=== PATIENT | female | born 1955 | race Caucasian/White ===

== ENCOUNTER 2018-10-07 20:01 | Inpatient (IN) ==
[2018-10-07] MEDS ORDERED: ASPIRIN ONE (20:09)
[2018-10-07] MEDS ORDERED: ASPIRIN PO ONE (20:43)
--- NOTE | 2018-10-07 20:58 | PROVIDER DOCUMENTATION ---
HPI-General Adult - General Chief Complaint: Chest Pain Stated Complaint: CHEST PAIN Time Seen by Provider: 10/07/18 20:45 Source: patient Allergies/Adverse Reactions: Patient Allergies Allergy/AdvReac Type Severity Reaction Status Date / Time Penicillins Allergy SWELLING Verified 10/07/18 20:14 Sulfa (Sulfonamide Allergy SWELLING Verified 10/07/18 20:14 Antibiotics) Home Medications: Home Medication List Medication Instructions Recorded Confirmed Last Taken Type ATORVAstatin [Lipitor] 1 tab PO DAILY 07/29/18 07/29/18 Unknown History Alprazolam 1 tab PO BID PRN 07/29/18 07/29/18 Unknown History Bumetanide 1 tab PO BID 07/29/18 07/29/18 Unknown History Cyclobenzaprine [Flexeril] 10 mg PO 4XDAY PRN 07/29/18 07/29/18 Unknown History Duloxetine HCl 1 cap PO BID 07/29/18 07/29/18 Unknown History Fluconazole 100 mg PO BID 07/29/18 07/29/18 Unknown History Gabapentin 1 cap PO BID 07/29/18 07/29/18 Unknown History Losartan [Cozaar] 1 tab PO DAILY 07/29/18 07/29/18 Unknown History Meclizine [Antivert] 1 tab PO 4XDAY PRN 07/29/18 07/29/18 Unknown History Ondansetron HCl [Zofran] 1 tab PO BID PRN 07/29/18 07/29/18 Unknown History Pantoprazole [Protonix] 1 tab PO DAILY 07/29/18 07/29/18 Unknown History Promethazine [Phenergan] 1 tab PO Q6H PRN 07/29/18 07/29/18 Unknown History Tramadol HCl 1 tab PO BID PRN 07/29/18 07/29/18 Unknown History Trazodone [Desyrel] 1 tab PO HS 07/29/18 07/29/18 Unknown History - History of Present Illness -Gen Adult Nature of Presenting Problems: 62 y/o F presents to the ED complaining of 1 day of chest pain and generalized fatigue. Sates the pain began last night at about 6pm and is pressure like in her central chest. States with this she has been short of breath and notes that the pain and dyspnea worsens with exertion. Has also been feeling generally fatigued and has been craving ice which she states is how she felt when she was last anemic. Is still being worked up for her prior anemia and is due to have a colonoscopy at the end of the month. No melana or BRB per rectum. no fever, no uti type symptoms. has extensive cardiac history with multiple prior stents. 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 denies: fever Eyes: reports: no symptoms reported Ears, Nose, Mouth & Throat: reports: no symptoms reported Cardiovascular: reports: chest pain. denies: orthopnea, PND Respiratory: reports: dyspnea on exertion, shortness of breath. denies: cough Gastrointestinal: reports: no symptoms reported Genitourinary: reports: no symptoms reported Musculoskeletal: reports: no symptoms reported Integumentary: reports: no symptoms reported Neurological: reports: no symptoms reported Psychiatric: reports: no symptoms reported Endocrine: reports: no symptoms reported Hematologic/Lymphatic: reports: no symptoms reported Allergic/Immunologic: reports: no symptoms reported All Other Systems: Reviewed and Negative Past History - Adult - PAST MEDICAL HISTORY-ADULT Review of Records: reports: Old Records Reviewed, Nursing Assessment Review, Medications Reviewed, Social history reviewed & non-contributory. Cardiovascular: reports: CAD Respiratory: reports: asthma Musculoskeletal: reports: fibromyalgia - PRIOR SURGERIES/PROCEDURES Surgical/Procedure History: reports: cholecystectomy, cardiac stent (aortic), hysterectomy - IMMUNIZATION STATUS Childhood Immunizations: See Nurse Assessment Flu Vaccine: See Nurse Assessment - FAMILY HISTORY Family History: reviewed, not pertinent, cancer Physical Exam-General - PHYSICAL EXAM-ADULT Initial Vital Signs Reviewed: Yes - CONSTITUTIONAL General Appearance: appears well, alert, no apparent distress - EYES Eyes: PERRL/EOMI - HEAD, EARS, NOSE, MOUTH & THROAT HENMT: normocephalic/atraumatic, moist mucous membranes, normal ENT inspection - NECK Neck: non-tender, full range of motion, supple - RESPIRATORY Respiratory: chest non-tender, lungs clear, normal breath sounds - CARDIOVASCULAR Cardiovascular: normal peripheral pulses, regular rate, rhythm, no JVD, other (1 + bl pedal edema) - GASTROINTESTINAL (ABDOMEN) Abdominal Exam: non tender, soft - MUSCULOSKELETAL Back Exam: normal inspection, no CVA tenderness Extremity: normal range of motion, non-tender - SKIN Integumentary: normal color, normal turgor, warm/dry - NEUROLOGIC Neurologic: grossly normal, no motor/sensory deficits - PSYCHIATRIC Psych/Mental Status: normal mood/affect, normal thought content, normal thought process, oriented x 3 Progress - PLAN OF CARE/RESULTS Progress/Plan/Lab Results: Vital Signs - 8 hr 10/07/18 20:11 Temperature 98.6 F Pulse Rate 95 H Respiratory Rate 16 Blood Pressure 163/104 O2 Sat by Pulse Oximetry 98 Orders Category Date Time Status CHEST-2 VIEWS [RAD] Stat Exams 10/07/18 20:16 Taken BMP [BASIC METABOLIC PANEL] [CHEM] Stat Lab 10/07/18 20:51 Ordered BNP [PRO B-NATRIURETIC PEPTIDE] Stat Lab 10/07/18 20:52 Uncollected CBC WITH ELECTRONIC DIFF [HEME] Stat Lab 10/07/18 20:51 Ordered CK PROFILE [SP CHEM] Stat Lab 10/07/18 20:27 Received TROPONIN T Stat Lab 10/07/18 20:27 Received Aspirin Med 10/07/18 20:09 Discontinued 325 mg .ROUTE .STK-MED ONE Aspirin Med 10/07/18 20:43 Discontinued 325 mg PO NOW ONE EKG [EKG] Stat Ther 10/07/18 20:15 Ordered chest pain with dyspnea and fatigue will further evaluate for causes including but not limited to ACS, arrythmia, CHF, pna, ptx, pe, anemia Result Diagrams: 10/07/18 20:20 10/07/18 20:20 - REASSESSMENT Reassessment #1 Status: improving (feeling well chest pain resovled. ED work up unremarkable but presentation concering for ACS will admit for further evaluation and treatment) - EKG 1 Time of EKG reading by physician:: 20:10 EKG Read and Signed by:: Shira Grimes EKG Interpretation (*Must complete 3 of following elements*): Normal (Sinus Rhythm, rate 97, no acute st changes, normal axis and intervals) - XRAY 1 XRAY Study: Chest Impression: Normal (per radiologist read: IMPRESSION: Stable cardiomegaly and mild atelectasis versus scarring at the lower lung zones. No definite acute pathology, otherwise.") - CONSULTS/PCP/HOSPITALIST Notification #1 *Consult/PCP/Hospitalist*: Dr. Wilson, Hospitalist Time Discussed: 22:50 Consult Disposition: Admit Departure - Departure Date of Disposition Decision: 10/07/18 Time of Disposition Decision: 22:54 DIAGNOSIS: Chest pain Qualifiers: Chest pain type: unspecified Qualified Code(s): R07.9 - Chest pain, unspecified Disposition: ADMITTED INPATIENT 09 Certified Medical Emergency: Emergent Condition: Good Referrals and Follow-Ups: Dale Benjamin [Primary Care Provider] - - Critical Care Note This patient required my direct & personal management of CC.: No Attestation - Physician/ KATELIN Attestation Patient care was provided by Advanced Practice Provider:: No The physician spent face to face time with patient:: Yes Advanced Practice Provider documentation review:: Supervising physician onsite and consulted in the evaluation and care of this patient. The physician did have a face to face encounter with the patient.
--- NOTE | 2018-10-07 21:28 | Diag Imaging Result Doc PS360 ---
EXAM: CHEST-2 VIEWS INDICATION: chest pain TECHNIQUE: 2 views COMPARISON: 07/29/2018 FINDINGS: There are stable linear densities at the lower lung zone suggesting chronic atelectasis versus scarring. The lungs are grossly clear, otherwise. There is no discrete pleural fluid collection or pneumothorax. There is stable cardiomegaly. Central vasculature is unremarkable. IMPRESSION: Stable cardiomegaly and mild atelectasis versus scarring at the lower lung zones. No definite acute pathology, otherwise. Electronically signed by Shailesh Meza 10/07/2018 9:25 PM
[2018-10-07 21:55] LABS: AGAP 14; BUN 11 mg/dL (8-22); CALCIUM 9.4 mg/dL (8.8-10.2); CHLORIDE 101 mmol/L (98-107); COSMO 283; CREATININE 0.8 mg/dL (0.5-0.9); ESTIMATED GFR > 60; GLUCOSE 114 mg/dL (70-104); POTASSIUM 3.8 mmol/L (3.5-5.1); SODIUM 142 mmol/L (136-145); TCO2 27 mmol/L (25-35)
[2018-10-07 22:06] LABS: BASO# 0.06 X1000 (0.0-0.2); BASO% 1.3 % (0.0-0.8); EOS# 0.23 X1000 (0.0-0.7); EOS% 5.1 % (0.0-10.0); HEMATOCRIT 30.6 % (37.0-47.0); HEMOGLOBIN 9.4 g/dL (12.0-16.0); IMM GRAN# 0.01 X1000 (0.0-0.04); IMM GRAN% 0.2 % (0.0-0.5); LYMPH# 1.46 X1000 (1.2-3.4); LYMPH% 32.2 % (20.5-51.1); MCH 23.6 PG (27-31); MCHC 30.7 g/dL (33-37); MCV 76.9 FL (81-99); MONO# 0.55 X1000 (0.11-0.59); MONO% 12.1 % (1.7-9.3); MPV 9.6 FL (7.4-10.4); NEUT# 2.23 X1000 (1.4-6.5); NEUT% 49.1 % (42.2-75.2); PLT 385 X1000 (130-400); RBC 3.98 XMIL (4.2-5.4); RDW 22.1 % (11.5-14.5); WBC 4.54 X1000 (4.8-10.8)
[2018-10-08] MEDS ORDERED: FLEXERIL PO PRN (11:21)
[2018-10-08] MEDS ORDERED: XANAX PO PRN (11:21)
[2018-10-08] MEDS ORDERED: ULTRAM PO PRN (11:21)
[2018-10-08] MEDS ORDERED: ANTIVERT PO PRN (11:21)
[2018-10-08] MEDS ORDERED: ZOFRAN ODT PO PRN (11:21)
--- NOTE | 2018-10-08 11:47 | HISTORY AND PHYSICAL ---
PRIMARY CARE PHYSICIAN: Dale Benjamin MD LEASING PROPERTY MANAGER: Raymon Kowalski MD CHIEF COMPLAINT: Chest pain, generalized fatigue, shortness of breath, and craving ice. HISTORY OF PRESENTING ILLNESS: This is a 62-year-old female, who presents to [facility] ER with complaints of substernal chest pain that she described as a heavy pressure that radiated through to her bilateral shoulder blades. She has had generalized fatigue, shortness of breath, and it is also noted that she is craving ice. She has a history of iron deficiency anemia. Workup showed an hemoglobin of 9.4 and hematocrit 30.6. Cardiac enzyme was negative. Her chest x-ray showed stable cardiomegaly, no definite acute pathology so she was admitted for further evaluation and treatment. PAST MEDICAL HISTORY: Coronary artery disease, asthma, fibromyalgia, and iron deficiency anemia. PAST SURGICAL HISTORY: Cholecystectomy, heart stent placement, and a hysterectomy. FAMILY HISTORY: Reviewed and noncontributory. SOCIAL HISTORY: She currently lives with family. Denies any tobacco, alcohol, or illicit drug use. ALLERGIES: Penicillin and sulfa. HOME MEDICATIONS: She takes Xanax 0.5 mg p.o. b.i.d. p.r.n., Lipitor 40 mg p.o. at bedtime, bumetanide 2 mg p.o. b.i.d., Flexeril 10 mg p.o. 4 times daily p.r.n., duloxetine 60 mg p.o. b.i.d., gabapentin 300 mg p.o. b.i.d., [place] 5 1 p.o. t.i.d. p.r.n., Cozaar 25 mg p.o. daily, meclizine 12.5 mg p.o. 4 times daily p.r.n., Zofran 8 mg p.o. b.i.d. p.r.n., Protonix 40 mg p.o. daily, potassium 10 mEq p.o. daily, Phenergan 25 mg p.o. q.6 h. p.r.n. (will be held), tramadol 50 mg p.o. b.i.d. p.r.n., and trazodone 50 mg p.o. at bedtime. DIAGNOSTIC STUDIES: White blood cell count of 4.54, hemoglobin 9.4, hematocrit 30.6, platelets 385,000. Sodium 142, potassium 3.8, chloride 101, CO2 of 27, BUN of 11, creatinine 0.8, glucose 114. Troponin was less than 0.010. ProBNP of 56. Chest x-ray showed stable cardiomegaly and mild atelectasis versus scarring at the lower lung zones. No definite acute pathology otherwise. REVIEW OF SYSTEMS: She denied any fever, chills, blurred vision, dizziness. She was positive for generalized fatigue, chest pain that radiated through to her bilateral shoulder blades, shortness of breath, and craving ice. Denied any abdominal pain, constipation, diarrhea, or burning or hurting with urination. PHYSICAL EXAMINATION: VITAL SIGNS: On arrival she had a temperature of 98.6 degrees, pulse 95, respirations 16, blood pressure was 163/104, saturating 98% on room air. Currently, her blood pressure is 132/78. GENERAL: This is a 62-year-old female, who is sitting on the side of the bed and answers questions appropriately. HEMNT: Normocephalic, atraumatic. Normal ENT inspection. Oropharynx and nares are clear. EYES: Pupils are equal, round, and reactive to light and accommodation. Extraocular movements are intact. NECK: Normal inspection. Normal range of motion. LUNGS: Clear to auscultation bilaterally with equal lung expansion and chest wall movement. HEART: Regular rate and rhythm. No murmurs, rubs, or gallops. ABDOMEN: Soft, nontender, nondistended. Bowel sounds are present x4 quadrants. MUSCULOSKELETAL: She has 5/5 strength x4 extremities. NEUROLOGICAL: The cranial nerves 2 through 12 are grossly intact. ASSESSMENT: 1. Chest pain. 2. Iron deficiency anemia, history of. 3. Fatigue. 4. History of coronary artery disease. PLAN: She was admitted to the medical unit. Placed on telemetry. O2 per protocol, but currently not requiring. Healthy heart diet. We are going to complete her sets of cardiac enzymes. We will do iron studies also. Continue her home medications. She was concerned because she has an appointment tomorrow with her orthopedic doctor to get refills on her medications for her fibromyalgia and was to have some injections into her knees for the fibromyalgia so I will discuss this with the attending. It may be possible, if her serial cardiac enzymes are negative, that we can set her up for a stress test outpatient so that she can keep this appointment, but in any case, we will review that once we get her labs back. Dictated by CAROLINE Lemus for Maycol Wilson MD cc: CAROLINE Lemus MD Charles D Coffey, MD
[2018-10-08 11:54] LABS: IRON SATURATION 5 %; TIBC 384 ug/dL; TOTAL IRON 21 ug/dL (49-151); UNBOUND IRON 363 ug/dL (112-346)
[2018-10-08] MEDS: CYMBALTA PO SCH ×2 (12:58→21:26)
[2018-10-08] MEDS: COZAAR PO SCH (12:59)
[2018-10-08] MEDS: NEURONTIN PO SCH ×2 (12:59→21:26)
[2018-10-08] MEDS: PROTONIX PO SCH (12:59)
[2018-10-08] MEDS: KLOR-CON PO SCH (12:59)
[2018-10-08] MEDS: BUMEX PO SCH ×2 (12:59→21:26)
[2018-10-08] MEDS ORDERED: VENOFER 200 MG in NS 150 ML IV ONE (13:00)
[2018-10-08 15:26] LABS: FERRITIN 13 ng/mL (13-150)
--- NOTE | 2018-10-08 18:41 | HISTORY AND PHYSICAL ---
CONSULT NOTE: The patient came in with chest pain. She is anemic. She has had some weakness, but her chest pain is heavy pressure, radiating to her bilateral shoulder blades. She does have a history of anemia, unclear etiology, but she has a history of anemia. Her workup was pretty negative so she went home. The plan was to go home. We discussed that she has had multiple stents. It has been over a year since her last invasive imaging. So, we will get that situated. DISPOSITION: Pending her clinical status. In any case, if workup is negative anticipate discharge tomorrow. We will see. cc: Maycol Wilson MD
[2018-10-08] MEDS ORDERED: LIPITOR PO SCH (21:00)
[2018-10-08] MEDS: DESYREL PO SCH (21:26)
[2018-10-09] MEDS: PROTONIX PO SCH (06:29)
[2018-10-09 07:31] LABS: ALBUMIN 3.9 g/dL (3.5-5.0); ALKALINE PHOSPHATASE 120 U/L (32-104); CHOLESTEROL 156 mg/dL (0-200); DIRECT BILIRUBIN < 0.20 mg/dL (0.00-0.20); GOT 17 U/L (10-30); GPT 13 U/L (10-36); HDL 61 mg/dL (45-65); LDL 81 mg/dL; TRIGLYCERIDES 68 mg/dL (35-135); VLDL 14 mg/dL
--- NOTE | 2018-10-09 09:11 | EKG Report ---
Test Performed on : 10/09/2018 05:53:06 AM Test Reason : cp Blood Pressure : / mmHG Vent. Rate : 092 BPM Atrial Rate : 092 BPM P-R Int : 170 ms QRS Dur : 072 ms QT Int : 364 ms P-R-T Axes : 038 -11 025 degrees QTc Int : 450 ms Normal sinus rhythm. Minimal voltage criteria for LVH, may be normal variant Inferior infarct (cited on or before 07-MAR-2017) Cannot rule out Anterior infarct , age undetermined Abnormal ECG When compared with ECG of 07-OCT-2018 20:09, (Unconfirmed) Questionable change in initial forces of Inferior leads Unconfirmed Result
--- NOTE | 2018-10-09 09:30 | EKG Report ---
Test Performed on : 10/07/2018 8:09:22 PM Test Reason : chest pain Blood Pressure : / mmHG Vent. Rate : 097 BPM Atrial Rate : 097 BPM P-R Int : 184 ms QRS Dur : 074 ms QT Int : 344 ms P-R-T Axes : 034 -14 012 degrees QTc Int : 436 ms Normal sinus rhythm. Minimal voltage criteria for LVH, may be normal variant Inferior infarct (cited on or before 07-MAR-2017) Abnormal ECG When compared with ECG of 29-JUL-2018 07:43, No significant change was found Unconfirmed Result
[2018-10-09] MEDS ORDERED: LEXISCAN ONE (10:00)
--- NOTE | 2018-10-09 11:12 | GRADED EXERCISE REPORT ---
DATE: 10/09/2018 GXT ADMINISTRATION AND EKG INTERPRETATION: INDICATION: Chest pain. SUMMARY: This a female, a 62-year-old with history of CAD. Her baseline EKG was nonspecific. She did have a Q in Lead III, but that is about it. She was administered Lexiscan 0.4 mg per protocol. Peak heart rate was 106. Peak blood pressure 125/74. She did develop chest pain, similar to her previous angina during this test, about 4 minutes into the test, not immediately. Test was felt to be clinically positive, but electrically negative. There were no significant ST changes. Myocardial perfusion reported separately. cc: Mayocl Wilson MD
[2018-10-09] MEDS: COZAAR PO SCH (13:43)
[2018-10-09] MEDS: NEURONTIN PO SCH ×2 (13:43→21:28)
[2018-10-09] MEDS: KLOR-CON PO SCH (13:43)
[2018-10-09] MEDS: CYMBALTA PO SCH ×2 (13:43→21:28)
[2018-10-09] MEDS: BUMEX PO SCH (13:43)
--- NOTE | 2018-10-09 15:09 | Diag Imaging Result Document ---
PROCEDURE NAME: MYOCARDIAL PERF SCAN, STR/REST - 10/09/2018 STUDY: Rest/stress Lexiscan myocardial perfusion study. REQUESTING PHYSICIAN: Dr. Wilson. INDICATION: Patient with previous stents and coronary heart disease. DESCRIPTION: The patient came into the nuclear lab and received rest injection of technetium 99 sestamibi 14.5 mCi. Multiple tomographic views of the cardiac structures were obtained at rest. Subsequently, the patient underwent infusion of Lexiscan under the supervision of Dr. Wilson. At peak infusion, injected with technetium 99 sestamibi 44.3 mCi. Multiple tomographic views of the cardiac structures were obtained following completion of the protocol. SUMMARY OF THE MYOCARDIAL PERFUSION PORTION OF THE STUDY: Dr. Wilson already reported the ECG portion. Poststress tomographic views of the left ventricle showed a small to moderate size, moderate in severity apical anterior defect. The rest images showed that this defect is fixed. The polar plots reveal the same. There is a focal small to medium size scar of moderate severity involving the apical anterior wall of the left ventricle. That would correspond to territory of the LAD, probably the mid LAD to distal LAD. There is no ischemia. All the other slaughter show normal perfusion and no ischemia. Gated SPECT showed normal left ventricular systolic function with ejection fraction of 73% with normal ventricular volumes and no wall motion abnormality. The lung/heart ratio is 0.38. TID is normal at 0.97. SUMMARY: In summary, this study shows: 1. Abnormal poststress myocardial perfusion scan. There is scintigraphic suggestion of a focal apical anterior scar without any significant inducible ischemia. 2. Normal left ventricular systolic function with ejection fraction of 73% with normal ventricular volumes and no wall motion abnormality. Clinical correlation is strongly recommended. cc: MD Maycol Desouza MD
--- NOTE | 2018-10-09 18:17 | CARDIOLOGY CONSULTATION ---
DATE: 10/09/2018 CHIEF COMPLAINT ON PRESENTATION: Chest pain. HISTORY OF PRESENT ILLNESS: Ms. Carmona is a 62-year-old female with complaints of chest pain that has been going on for a couple of months at this point. These pains occur relatively frequently with activity as a pressure sensation with radiations to her shoulder blades. It will act up within a minute or so of activity. She says it has been worsening more recently. She has no orthopnea. No recent fevers. PAST MEDICAL HISTORY: Significant for: 1. Coronary disease. She has a history of an occluded proximal left anterior descending with a significant collateralization from the right coronary. She had previous nuclear scans that were unremarkable with his known abnormality. 2. Asthma. 3. Fibromyalgia. 4. Hypertension. 5. Hyperlipidemia. SOCIAL HISTORY: She does not smoke. No alcohol or illicit drugs. FAMILY HISTORY: Significant for hypertension. REVIEW OF SYSTEMS: A 10-system review of systems is negative except for those as mentioned in HPI. PHYSICAL EXAMINATION: Vital Signs: She is afebrile. Heart rate is 92, blood pressure 103/66. General: She is in no acute distress. HEENT: Oropharynx is moist. Poor dentition. Eye examination with pink conjunctivae, white sclerae. Neck Examination: Shows no obvious thyromegaly or thyroid tenderness. Cardiovascular: She sounds to be in a regular rate and rhythm. She has no obvious murmurs. She has no S3. She has no lower extremity edema. She has no carotid bruits. Respiratory: Her chest is clear to auscultation bilaterally. She has no increased work of breathing. Abdomen: Soft, nontender, nondistended. No obvious organomegaly. Skin Exam: Warm and dry throughout. Neurological: Moving all extremities well. No lateralizing deficits. Psychiatric: Alert and oriented, pleasant normal mood and affect. PERTINENT DATA: EKG on the 4th at 5:53 shows sinus rhythm. Prior EKG on the 2nd at 2008 shows sinus rhythm, no ischemic changes. She had a chest x-ray demonstrating mild atelectasis versus scarring in the lower lung zones. No acute chest pathology. Her lab data shows a white count of 4.5, hematocrit of 30. Her platelet count is 385,000. Her sodium is 142, potassium is 3.8, BUN 11, creatinine 0.8. Her cardiac enzymes are negative. Her LDL was 81. ASSESSMENT: Ms. Carmona is a 62-year-old female with known coronary disease who is presenting with worsening symptoms that seem to be escalating in nature. PLAN: She has a fixed defect in the anterior wall with continued symptoms. This is different from her previous nuclear scan. I believe this would warrant coronary angiography. I will intensify her lipid therapy, stop her Bumex and losartan and place her on Toprol and amlodipine to increase her antianginal benefit. She is on aspirin at this point. We will proceed with attempted transfer to [facility] for consideration of cardiac catheterization. I will discuss the risks, benefits and alternatives with the patient and proceed from there. cc: Eladio Pollack MD
[2018-10-09] MEDS: LOPRESSOR PO SCH (21:27)
[2018-10-09] MEDS: DESYREL PO SCH (21:28)
[2018-10-09] MEDS: NORCO-5 PO PRN (21:34)
[2018-10-09] MEDS: LIPITOR PO SCH (21:34)
--- NOTE | 2018-10-09 22:33 | PROGRESS NOTE ---
DATE: 10/09/2018 SUBJECTIVE: Patient notes that she is feeling better still having some atypical chest pain across her mid upper chest. States she is having some shortness of breath at rest as well. PHYSICAL: Temperature 98.6, pulse 94, respiratory 18, BP 118/72.General: Patient is very pleasant to talk with she is in no current respiratory distress. HEENT: Normocephalic. Neck: Supple. CV: Regular rate. Chest: Clear, nonlabored. Abdomen: Soft, nondistended. Extremities: Moves all extremities. ASSESSMENT: Chest pain. Patient had a abnormal stress test and therefore Dr. Pollack, cardiology has elected to transfer her for left heart catheterization. PLAN: We will transfer patient to [facility] for more definitive diagnosis of her chest pain, continue her other medications, continue treat her fibromyalgia, further orders as needed. cc: Luis Bianchi MD
[2018-10-10] MEDS ORDERED: NS 250 ML IV ONE (06:29)
--- NOTE | 2018-10-10 06:32 | ECHO REPORT ---
ORDER DATE: 10/09/2018 INTERPRETING PHYSICIAN: Dr. West. INDICATIONS: Chest pain, history of occluded stent to LAD. M-MODE MEASUREMENTS: Left ventricle end diastole: 4.6 cm. Left ventricle end systole: 2.3 cm. Posterior wall: 1.0 cm. Interventricular septum: 1.1 cm. Left atrium: 3.4 cm. Aortic root: 3.7 cm. SUMMARY OF 2-DIMENSIONAL IMAGING: The left ventricular systolic function is excellent. Ejection fraction is estimated at 55% or better. I do not see any definite wall motion abnormality. Definity was injected to opacify the left ventricular chamber. The right ventricle appears to be normal. The atria appear to be normal. The mitral valve is unremarkable. Pulse wave Doppler of mitral inflow shows reversal of the E/A ratio. The ratio is 0.6. Tissue Doppler of septal and lateral mitral annulus averages 9 cm per second. There is no diastolic dysfunction. The aortic valve was normal. Color flow mapping unremarkable. The pulmonary valve was unremarkable. Color flow mapping unremarkable. Tricuspid valve appears to be grossly normal. The pulmonary pressure estimated at 22 mmHg. There is no pericardial effusion, mass and no thrombus. SUMMARY: This echo shows 1. Normal left ventricular systolic function. 2. No diastolic dysfunction. 3. No evidence of any significant valvular abnormality. 4. No pulmonary hypertension. Clinical correction recommended. cc: MD Maycol Desouza MD
[2018-10-10 06:39] LABS: BASO# 0.05 X1000 (0.0-0.2); BASO% 0.7 % (0.0-0.8); EOS# 0.31 X1000 (0.0-0.7); EOS% 4.5 % (0.0-10.0); HEMATOCRIT 31.5 % (37.0-47.0); HEMOGLOBIN 9.3 g/dL (12.0-16.0); IMM GRAN# 0.01 X1000 (0.0-0.04); IMM GRAN% 0.1 % (0.0-0.5); LYMPH# 2.35 X1000 (1.2-3.4); LYMPH% 34.2 % (20.5-51.1); MCH 23.1 PG (27-31); MCHC 29.5 g/dL (33-37); MCV 78.4 FL (81-99); MONO# 0.83 X1000 (0.11-0.59); MONO% 12.1 % (1.7-9.3); MPV 9.8 FL (7.4-10.4); NEUT# 3.33 X1000 (1.4-6.5); NEUT% 48.4 % (42.2-75.2); PLT 408 X1000 (130-400); RBC 4.02 XMIL (4.2-5.4); RDW 22.2 % (11.5-14.5); WBC 6.88 X1000 (4.8-10.8)
[2018-10-10 06:50] LABS: CREATININE 2.4 mg/dL (0.5-0.9)
[2018-10-10 06:51] LABS: INR 0.98; PROTIME 13.5 Seconds (11.0-16.0)
[2018-10-10] MEDS ORDERED: NS 250 ML ONE (06:54)
[2018-10-10] MEDS: PROTONIX PO SCH (07:47)
[2018-10-10] MEDS ORDERED: NS 1,000 ML IV ONE ×2 (08:19→08:31)
[2018-10-10] MEDS ORDERED: NS 1,000 ML IV SCH (08:45)
[2018-10-10 09:35] LABS: ANISOCYTOSIS 1+; EOS 3 % (1-10); LYMPHS 26 % (21-51); MICROCYTOSIS 1+; MONO 11 % (1-9); POIKILOCYTOSIS OCCASIONAL; SEGS 60 % (42-75)
[2018-10-10 09:39] LABS: CREATININE 2.3 mg/dL (0.5-0.9); POTASSIUM 4.4 mmol/L (3.5-5.1)
[2018-10-10] MEDS: ASPIRIN PO SCH (09:50)
[2018-10-10] MEDS: NEURONTIN PO SCH ×2 (09:50→21:30)
[2018-10-10] MEDS: LOPRESSOR PO SCH ×2 (09:50→21:31)
[2018-10-10] MEDS: CYMBALTA PO SCH ×2 (09:50→21:31)
[2018-10-10] MEDS: NORVASC PO SCH (09:51)
[2018-10-10] MEDS: NS 1,000 ML IV SCH (09:54)
[2018-10-10] MEDS: NORCO-5 PO PRN (15:44)
[2018-10-10 18:28] LABS: CALCIUM 8.4 mg/dL (8.8-10.2); CREATININE 1.5 mg/dL (0.5-0.9); POTASSIUM 4.2 mmol/L (3.5-5.1)
[2018-10-10] MEDS: DESYREL PO SCH (21:31)
[2018-10-10] MEDS: LIPITOR PO SCH (21:31)
--- NOTE | 2018-10-10 23:48 | PROGRESS NOTE ---
DATE: 10/10/2018 SUBJECTIVE: The patient has no new complaints. States she is still having chest pain, bilateral chest, radiates through to her back as well as down her left arm, hurts at rest and with exertion. OBJECTIVE: Vital Signs: Reviewed. General: She is awake, alert. She is in no current distress. HEENT: Normocephalic. Neck: Supple. CARDIOVASCULAR: Regular rate. Chest: Clear, nonlabored. Abdomen: Soft, nondistended. Extremities: Moves all extremities. ASSESSMENT: 1. Acute renal failure. Creatinine actually elevated 2.5 today. We are going to transfer her to [place] for left heart catheterization, but given her elevated creatinine, we are going to place her on normal saline, she has already been given a bolus at 1 L, and we will follow. We will recheck her labs. 2. Chest pain. 3. Iron deficiency anemia. 4. Fatigue. PLAN: We will continue to hold her Norvas for metoprolol. Continue to follow. Give her IV fluids, and if her creatinine is better, hopefully, she can transition to [place] in the morning. cc: Luis Bianchi MD
[2018-10-11] MEDS: NS 1,000 ML IV SCH ×2 (01:48→16:33)
[2018-10-11] MEDS: PROTONIX PO SCH (06:22)
[2018-10-11 07:24] LABS: HEMATOCRIT 28.6 % (37.0-47.0); HEMOGLOBIN 8.4 g/dL (12.0-16.0); MCH 23.7 PG (27-31); MCHC 29.4 g/dL (33-37); MCV 80.6 FL (81-99); MPV 9.9 FL (7.4-10.4); RBC 3.55 XMIL (4.2-5.4); RDW 22.3 % (11.5-14.5); WBC 5.66 X1000 (4.8-10.8)
[2018-10-11 07:38] LABS: AGAP 7; ALBUMIN 3.5 g/dL (3.5-5.0); ALKALINE PHOSPHATASE 105 U/L (32-104); BUN 25 mg/dL (8-22); CALCIUM 8.7 mg/dL (8.8-10.2); CHLORIDE 106 mmol/L (98-107); COSMO 290; CREATININE 0.9 mg/dL (0.5-0.9); ESTIMATED GFR > 60; GLUCOSE 112 mg/dL (70-104); GOT 15 U/L (10-30); GPT 9 U/L (10-36); POTASSIUM 5.1 mmol/L (3.5-5.1); SODIUM 143 mmol/L (136-145); TCO2 29 mmol/L (25-35); TOTAL PROTEIN 6.5 g/dL (6.3-8.3)
[2018-10-11] MEDS: CYMBALTA PO SCH ×2 (08:25→21:06)
[2018-10-11] MEDS: NEURONTIN PO SCH ×2 (08:25→21:05)
[2018-10-11] MEDS: ASPIRIN PO SCH (08:25)
[2018-10-11] MEDS: NORVASC PO SCH (08:25)
[2018-10-11] MEDS: LOPRESSOR PO SCH ×2 (08:25→21:07)
--- NOTE | 2018-10-11 10:07 | Diag Imaging Result Doc PS360 ---
EXAM: US RENAL 2 (RETROPER) COMPLETE HISTORY: ANITHA TECHNIQUE: Renal ultrasound COMPARISON: None. FINDINGS: The right kidney measures 9.5 x 4.5 x 4.5 cm. Normal renal echotexture and cortical thickness. No renal stone or hydronephrosis. No renal mass. The left kidney measures 9.7 x 3.5 x 4.3 cm. Normal renal echotexture and cortical thickness. No renal stone or hydronephrosis. No renal mass. The urinary bladder is distended and is normal. IMPRESSION: Normal renal ultrasound. Electronically signed by Juan Bee 10/11/2018 10:04 AM
[2018-10-11] MEDS: NORCO-5 PO PRN (21:05)
[2018-10-11] MEDS: DESYREL PO SCH (21:06)
[2018-10-11] MEDS: LIPITOR PO SCH (21:07)
--- NOTE | 2018-10-11 22:16 | PROGRESS NOTE ---
DATE: 10/11/2018 SUBJECTIVE: Patient notes she is still having some diffuse nonspecific chest pain, seems to be worse with physical activity. PHYSICAL EXAM: VITAL SIGNS: Temperature 98 degrees, pulse 75, respiratory 18, BP 107/66. General: Patient is awake, alert. She is currently in no distress. Pleasant to talk with. HEENT: Normocephalic. Neck: Supple. CARDIOVASCULAR: Regular rate. No murmurs. Chest: Clear, nonlabored. Abdomen: Soft. Extremities: Moves all extremities. ASSESSMENT: 1. Acute renal failure, resolved. Creatinine down to 0.9. Most likely this was iatrogenic in cause and, thankfully, has resolved. 2. Hypertension. Much more stable on Norvasc and Toprol. 3. Chest pain. Certainly atypical in nature. Cardiology had initially planned a left heart catheterization; however, the patient's creatinine prevented this. PLAN: We will talk with Cardiology and let them know that her creatinine has resolved so that she can get on the schedule for left heart catheterization. cc: Luis Bianchi MD
[2018-10-12] MEDS: NS 1,000 ML IV SCH (06:54)
[2018-10-12 07:38] VITALS: BP 132/75
--- NOTE | 2018-10-13 00:33 | DISCHARGE SUMMARY ---
ADMISSION DATE: 10/08/2018 DISCHARGE DATE: 10/12/2018 DIAGNOSES: 1. Chest pain. 2. Known coronary artery disease. 3. Asthma. 4. Fibromyalgia. 5. Hypertension. 6. Acute renal failure, resolved. DIAGNOSTICS: 1. 10/07/2018 chest x-ray revealed stable cardiomegaly and mild atelectasis versus scarring in the lower lungs. No definite acute pathology. 2. 10/09/2018 echocardiogram revealed normal left ventricular systolic function, no diastolic dysfunction. No evidence of any significant valvular abnormality. No pulmonary hypertension. She does have a EF of 55%. 3. 10/09/2018 myocardial perfusion Lexiscan revealed abnormal post-stress myocardial perfusion scan. There is scintigraphic suggestion of a focal apical anterior scar without any significant inducible ischemia. Normal left ventricular systolic function with ejection fraction of 73% with normal ventricular volumes and no wall motion abnormality. 4. Renal ultrasound revealed normal renal ultrasound. HOSPITAL COURSE: Ms Carmona presented to the emergency room having chest pain that has been present for a couple of months. EKGs revealed no ischemic changes. She did rule out by troponins. Dr. Eladio Pollack, cardiology, was consulted. He did adjust medications and he arranged transferred to [facility] for a cardiac catheterization. On admission, her creatinine was 0.8, on the 5th it was 2.4. This was felt to be dehydration. After rehydration for 24 hours, creatinine is 0.9 with a normal renal ultrasound. DISCHARGE PHYSICAL EXAMINATION: Cardiovascular: Regular rate and rhythm. S1 and S2 are appreciated. Pulmonary: Breath sounds are clear with no increased work of breathing noted. Gastrointestinal: Abdomen is soft, nontender, nondistended with bowel sounds in all 4 quadrants. Skin: Warm and dry. Neurologic: She is alert and oriented x3. Extremities: She has no lower extremity edema with peripheral pulses palpable x4 extremities. DISCHARGE MEDICATIONS: Will be per Cardiology on her discharge from [facility] after her heart catheterization. She is being discharged and transferred to [facility] for further cardiology evaluation in stable condition. TIME SPENT: This is a greater than 30 minute discharge. Dictated by CAROLINE Huffman for Luis Bianchi MD This chart was documented by, CAROLINE Huffman and accurately reflects the services performed, treatment plan and medical decisions as attested by the providers signature Luis Bianchi MD. cc: CAROLINE Huffman MD
--- NOTE | 2018-10-13 20:28 | DISCHARGE SUMMARY ---
ADMISSION DATE: 10/08/2018 DISCHARGE DATE: 10/12/2018 ADDENDUM: Patient notes that she is still having chest pain especially with any ambulation. We will discharge her to [facility] for left heart catheterization. Please see full dictation. cc: Luis Bianchi MD
== END 2018-10-12 08:00 | disposition short-term general hospital (02) | DRG 313 ==
LOC: P.ED 20:01 → SUATTDRO 10-08 00:06 → P.MEDSURG 10-08 00:06
PROVIDERS: ATTEND Family Medicine
CPT/HCPCS: 71020; 71046; 76770; 78452; 80048; 80053; 80061; 80076; 82550; 82607; 82728; 82746; 83540; 83550; 83735; 83880; 84484; 85025; 85027; 85610; 93005; 93017; 93306; 94761; 99285; A9270; A9500; C8929; J1756; J2785; J7030; J7040; J7050; Q9957